=== PATIENT | male | born 1970 | race Caucasian/White ===

== ENCOUNTER 2017-05-17 22:32 | Emergency (ER) | payer OTHER ==
--- NOTE | 2017-05-18 00:16 | RADIOLOGY REPORT (SQ) ---
EXAM DESCRIPTION: ANKLE LEFT COMPLETE COMPLETED DATE/TIME: 05/18/2017 12:06 am REASON FOR STUDY: injury COMPARISON: None. NUMBER OF VIEWS: Three views. TECHNIQUE: AP, lateral, and oblique radiographic images acquired of the left ankle. LIMITATIONS: None. FINDINGS: MINERALIZATION: Normal. BONES: Transverse nondisplaced fracture of the distal fibula at the level of mortise JOINTS: No effusions. SOFT TISSUES: No soft tissue swelling. No foreign body. OTHER: No other significant finding. IMPRESSION: Transverse nondisplaced fracture of the fibula at the level of the mortise. TECHNICAL DOCUMENTATION: JOB ID: [id number] [employer]- All Rights Reserved
[2017-05-18] MEDS ORDERED: HYDROCODONE/ACETAMINOPHEN 5-325 MG TABLET PO ONE (00:37)
[2017-05-18] MEDS ORDERED: IBUPROFEN 600 MG TABLET PO ONE (00:37)
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
[2017-05-18 01:33] VITALS: BP 137/80
== END 2017-05-18 01:35 | disposition home or self-care (01) ==
LOC: ER 22:32
DX: S82.832A Other fracture of upper and lower end of left fibula, initial encounter for closed fracture (principal); V20.4XXA Motorcycle driver injured in collision with pedestrian or animal in traffic accident, initial encounter; F17.200 Nicotine dependence, unspecified, uncomplicated
CPT/HCPCS: 99283; 73610; L1902